=== PATIENT | female | born 1965 | race Two or more races ===

== ENCOUNTER 2024-11-05 16:37 | Emergency (ER) | payer OTHER ==
[~2024-11-05] VITALS: Ht 160 cm; Wt 66.0 kg
[2024-11-05 16:38] VITALS: TEMP 36.8; O2SAT 100
[2024-11-05] MEDS ORDERED: EPIN0.3P3 IM (17:30)
[2024-11-05] MEDS ORDERED: METHYLPREDNISOLONE 40MG/ML INJ IV ONE (18:30)
[2024-11-05] MEDS: METHYLPREDNISOLONE SOD SUCC 125MG/2ML (ACT-O-VIAL) IV NR (18:40)
[2024-11-05] MEDS: DIPHENHYDRAMINE 50MG/ML VIAL IV ONE (18:40)
[2024-11-05] MEDS: EPINEPHRINE 1:1000 1 MG/ML AMP INJ ONE (18:41)
[2024-11-05 18:48] LABS: BASOPHILS % 0.1 % (0.0-2.0); EOSINOPHILS % 0.0 % (0.0-5.0); HEMATOCRIT. 45.6 % (36.0-48.0); HEMOGLOBIN. 14.8 g/dL (12.0-16.0); LYMPHOCYTES % 17.1 % (20.0-50.0); MEAN PLATELET VOLUME 10.8 fl (7.4-10.4); MONOCYTES % 5.1 % (2.0-8.0); NEUTROPHILS % 77.7 % (40.0-76.0); PLATELET 205 x1000/uL (130-400); RED BLOOD CELL COUNT 4.96 mill/uL (4.2-5.4); RED CELL DISTRIBUTION WIDTH 13.4 % (11.6-14.6)
[2024-11-05 19:06] LABS: CREATININE 0.8 mg/dL (0.6-1.0); UREA NITROGEN BLOOD 11 mg/dL (9-23)
[2024-11-05 21:13] VITALS: BP 116/66; PULSE 101; RESP 19; O2SAT 98
== END 2024-11-05 21:13 | disposition home or self-care (01) ==
LOC: ER 16:37
DX: R11.10 Vomiting, unspecified (principal); R19.7 Diarrhea, unspecified; L50.9 Urticaria, unspecified; T50.905A Adverse effect of unspecified drugs, medicaments and biological substances, initial encounter; Z88.6 Allergy status to analgesic agent; X58.XXXA Exposure to other specified factors, initial encounter; Y93.89 Activity, other specified; Y92.89 Other specified places as the place of occurrence of the external cause; Y99.8 Other external cause status
CPT/HCPCS: 99284; 96374; 96375; 80048; 85025; 36415; J2919; J1200; J3490